=== PATIENT | male | born 1980 | race Caucasian/White ===

== ENCOUNTER 2017-12-02 20:54 | Emergency (ER) | payer BC ==
[2017-12-02 21:02] VITALS: BP 130/75; BMI 31.6
[2017-12-02] MEDS ORDERED: NS 1000 ML 1,000 ML ONE (21:19)
[2017-12-02] MEDS ORDERED: TORADOL 30 MG VIAL ONE (21:19)
[2017-12-02] MEDS ORDERED: ZOFRAN INJ 4 MG VIAL IVP ONE (21:20)
[2017-12-02] MEDS ORDERED: ZOFRAN INJ 4 MG VIAL ONE (21:20)
[2017-12-02] MEDS ORDERED: MORPHINE SULFATE INJ 4 MG ONE (21:20)
[2017-12-02] MEDS ORDERED: NS 1000 ML 1,000 ML IV ONE (21:21)
[2017-12-02] MEDS ORDERED: TORADOL 30 MG VIAL IVP ONE (21:21)
[2017-12-02] MEDS ORDERED: MORPHINE SULFATE INJ 4 MG IVP ONE (21:21)
--- NOTE | 2017-12-02 21:32 | DR.GENAD ---
HPI - PCP Primary Care Physician: cameron - Complaint/Symptoms Chief Complaint Doctors Comments: Patient reports that he has a history of migraine and the he presented with such. His headache usually goes away with ibuprofen and this time it was not effective. He had nausea associated with the headache. Chief Complaint:: kidney stone Self Treatment fo Chief Complaint: patient was seen by pcp and was positive for blood in urine. patient was given rx for flomax and ibuprofen 800 mg - Source History Provided: Patient - Mode of Arrival Mode of Arrival: Ambulatory - Timing Onset of Chief Complaint: 11/30/17 PMH - PMH Past Medical History: Yes Past Medical History: Kidney Stones Past Surgical History: Yes Surgical History: Appendectomy, Tonsillectomy Past Surgical History Comment: colonectomy - Family History History of Family Medical Conditions: No - Social History Does patient currently use any type of tobacco product: No Have you used tobacco products in the last 12 months: No Type of Tobacco Use: None Does any household member use tobacco: No Alcohol Use: None Do you use any recreational Drugs:: No Lives With: Family Lives Where: Home - infectious screening In the last 2 months have you had wt loss of >10#?: NO Have you had fever, night sweats or hemotysis?: No Have you traveled outside the country in the last 6 months?: No Isolation: Standard ROS - Review of Systems Eyes: No Symptoms Reported ENTM: No Symptoms Reported, Hearing Loss Cardiovascular: No Symptoms Reported Gastrointestinal/Abdominal: No Symptoms Reported Genitourinary: No Symptoms Reported Neurological: No Symptoms Reported Musculoskeletal: No Symptoms Reported Integumentary: No Symptoms Reported Hematologic/Lymphatic: No Symptoms Reported Endocrine: No Symptoms Reported Psychiatric: No Symptoms Reported All Other Systems: Reviewed and Negative PE - Vital Signs Vitals: Temperature 98.1 F Pulse Rate 90 Respiratory Rate 22 Blood Pressure 130/75 O2 Sat by Pulse Oximetry 97 - General Limitations: No Limitations General Appearance: Alert, In No Apparent Distress - Head Head Exam: Normal Inspection, Atraumatic - Eyes Eye exam: Normal Appearance, PERRL, EOMI - ENT ENT Exam: Normal Exam External Ear Exam: Normal External Inspection TM/Canal Exam: Bilateral Normal Nose Exam: Normal Nose Exam Mouth Exam: Normal Inspection Throat Exam: Normal Inspection - Neck Neck Exam: Normal Inspection - Chest Chest Inspection: Normal Inspection - Respiratory Respiratory Exam: Normal Lung Sounds Bilat Respiratory Exam: Bilateral Clear to Auscultation - Cardiovascular Cardiovascular Exam: Regular Rate, Normal Rhythm - Abdominal Exam Abdominal Exam: Normal Inspection, Normal Bowel Sounds Abdominal Tenderness: negative: RUQ, RLQ, LUQ, LLQ, Epigastrium, Suprapubic, Diffuse, Mild, Moderate, Severe, Other - Neurologic Neurological Exam: Alert, Oriented X3, CN II-XII Intact - Psychiatric Psychiatric Exam: Normal Affect, Normal Mood - Skin Skin Exam: Warm, Dry, Intact Course - Reevaluation 1st: Improved - Education/Counseling Educated On: Treatment, Diagnosis, Prognosis, Needs for Follow Up ROR - XRAY XRAY Interpreted by: Radiologist (CT Abd/Pel: No evidence of renal stone or hydronephrosis. No other acute abdominal abnormality to explain the patient's pain. Peripherally calcified partially visualized left lower lung lesion is possibly a peripherally calcified pericardial cyst. However, definitive characterization with outpaitient MR or CT chest imaging is recommended.) - Diagnosis Discharge Problem: Migraine headache Qualifiers: Migraine type: unspecified Status migrainosus presence: without status migrainosus Intractability: not intractable Qualified Code(s): G43.909 - Migraine, unspecified, not intractable, without status migrainosus - Discharge Plan Condition: Stable - Follow ups/Referrals Follow ups/Referrals: ROME JACKSON [Primary Care Provider] - 3 days - Instructions
--- NOTE | 2017-12-02 22:21 | CT ---
CT abdomen and pelvis without contrast Indication: Hematuria. Right flank pain. Technique: Helical images through the abdomen and pelvis without contrast. Coronal and sagittal refor mats provided. Findings: Review of bone windows demonstrates no osseous abnormality. Abdomen: Single hypodensity in the liver on axial image 23 is probably a cyst. The liver, gallbladder , spleen, adrenal glands, pancreas, stomach and small bowel are grossly normal. Postsurgical change s een at the rectosigmoid junction. The colon shows no acute abnormality otherwise the appendix is abse nt. Vasculature is free of significant plaque. The kidneys show no hydroureteronephrosis. Pelvis: The urinary bladder, rectum and prostate gland are normal. There is peripherally calcified left lower lobe lesion, with intermediate density. This measures 7.1 x 6.3 cm on axial image 6. Impression: 1. No evidence of renal stone or hydronephrosis. 2. No other acute abdominal abnormality to explain the patient's pain 3. Peripherally calcified partially visualized left lower lung lesion is possibly a peripherally calc ified pericardial cyst. However, definitive characterization with outpatient MR or CT chest imaging i s recommended. Reported By:
== END 2017-12-02 22:43 | disposition home or self-care (01) ==
LOC: ER 21:07
DX: G43.909 Migraine, unspecified, not intractable, without status migrainosus (principal); R10.84 Generalized abdominal pain
CPT/HCPCS: 74176; 96365; 96374; 96375; 99282; 99283; A4222; J1885; J2270; J2405